=== PATIENT | female | born 1975 | race Caucasian/White ===

== ENCOUNTER → 2025-08-21 06:29 | Outpatient (CLI) | payer MEDICAID, SELFPAY ==
--- NOTE | 2025-08-21 07:10 | DI.US_ITS ---
Exam(s) US PELVIS TRANSVAGINAL EXAM: US PELVIS TRANSVAGINAL CLINICAL HISTORY: Check anatomy, previous IUD expulsion,contraceptive measurement,z30.9 TECHNIQUE: Transabdominal and transvaginal imaging was performed using standard protocol. COMPARISON: No exams were available for comparison FINDINGS: UTERUS: Anteverted. 10.3 x 6 x 6 x 8.8 cm Endometrium: mm Myometrium: Multiple fibroids. Difficult to discretely measure. Fibroid near the fundus is measured at 4 cm. Fibroid with calcification posteriorly in the mid uterine body is measured at 2.7 cm. Cervix: Unremarkable. OVARIES: Right: Cyst or mass: None. Left: Cyst or mass: None. DOPPLER: Color: Symmetric and uniform flow to both ovaries. No hyperemia. CUL-DE-SAC: Free fluid: None. IMPRESSION: 1. The uterus is enlarged with multiple fibroids. 2. Unremarkable bilateral ovaries. DATA REPOSITORY:
== END ==
LOC: DI 06:30
PROVIDERS: PCP Family Medicine; Visit Provider Obstetrics & Gynecology
DX: Z30.9 Encounter for contraceptive management, unspecified (principal); D25.9 Leiomyoma of uterus, unspecified
CPT/HCPCS: 76830; 76856